=== PATIENT | female | born 1980 | race Caucasian/White ===

== ENCOUNTER 2017-03-25 21:21 | Emergency (ER) | payer OTHER ==
[~2017-03-25] VITALS: Ht 165.1 cm; Wt 89.4 kg
[2017-03-25 21:29] VITALS: BP 151/79; PULSE 80; RESP 16; TEMP 98.8; O2SAT 98
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
--- NOTE | 2017-03-25 22:33 | RADRPT ---
EXAM DATE/TIME: 03/25/2017 22:00 [facility] COMPARISON: No previous studies available for comparison. INDICATIONS : Entire right wrist pain. MEDICAL HISTORY : Previous right wrist sprain SURGICAL HISTORY : None. ENCOUNTER: Initial ACUITY: 1 day PAIN SCORE: 6/10 LOCATION: Right upper extremity FINDINGS: Three view examination of the right wrist demonstrates no soft tissue swelling, dislocation, or fract ure. The carpal bones are in normal alignment. The joint spaces are maintained. Bony mineralizatio n is normal. CONCLUSION: No acute disease. Sincere Monroy MD on March 25, 2017 at 22:31 Board Certified Radiologist. This report was verified electronically.
== END 2017-03-25 22:51 | disposition home or self-care (01) ==
LOC: PHEFT 21:21
DX: S63.501A Unspecified sprain of right wrist, initial encounter (principal); Y99.0 Civilian activity done for income or pay
CPT/HCPCS: 73110; 99283; L3908